=== PATIENT | female | born 2000 | race Caucasian/White ===

== ENCOUNTER 2021-10-23 09:00 | Outpatient (CLI) | payer BC ==
[2021-10-23 10:24] LABS: Hemoglobin 12.2 g/dL (12.0-15.5); Mean Corpuscular HGB CONC 31.4 g/dL (32.0-36.0); Mean Corpuscular Hemoglobin 24.5 pg (27.0-33.0); Mean Corpuscular Volume 77.9 fl (81.6-98.3); Mean Platelet Volume 9.5 fl (7.4-10.4); Platelet Count 337 10x3/uL (150-450); RBC Distribution Width 16.1 % (11.5-14.5); Red Blood Cell (RBC) Count 4.98 10x6/uL (3.90-5.03); White Blood Cell (WBC) Count 5.6 10x3/uL (3.5-10.5)
[2021-10-23 10:25] LABS: BHCG - Serum Negative (NEGATIVE); Pregs Control Background? CLEAR/WHITE (CLR/WHITE); Pregs Control Bar Appear? YES (CONTROL BAR)
[2021-10-23 10:30] LABS: Anion Gap 13 mmol/L (10-20); BUN (Urea Nitrogen) 18 mg/dL (7.0-18.7); Calc. Creatinine Clearance 0 mL/min (70-130); Calcium 9.2 mg/dL (7.8-10.44); Carbon Dioxide 24 mmol/L (22-29); Chloride 108 mmol/L (98-107); Glucose 101 mg/dL (70-105); Potassium 4.3 mmol/L (3.5-5.1); Sodium 141 mmol/L (136-145)
[2021-10-23 18:51] LABS: SARS-CoV-2 PCR by NAA Not Detected (NotDetected)
== END 2021-10-23 09:01 | disposition home or self-care (01) ==
LOC: CSHLAB 09:00
PROVIDERS: ATTEND Orthopaedic Surgery
DX: Z01.812 Encounter for preprocedural laboratory examination (principal); Z20.822 Contact with and (suspected) exposure to COVID-19; S62.324A Displaced fracture of shaft of fourth metacarpal bone, right hand, initial encounter for closed fracture
CPT/HCPCS: 80048; 84703; 85027; U0003; U0005

== ENCOUNTER 2021-10-24 06:58 | Day surgery (SDC) | payer BC ==
[2021-10-22 14:53] VITALS: BMI 34.9
[2021-10-24] MEDS ORDERED: Lidocaine 1% MPF 2 ML VIAL ONE (07:33)
[2021-10-24] MEDS ORDERED: Bupivacaine HCl 0.5%/Epinephrine 1:200,000/PF 30 ml Vial ONE (08:17)
[2021-10-24] MEDS ORDERED: Neomycin-Polymyxin 1 ML AMP ONE (08:18)
[2021-10-24] MEDS ORDERED: Midazolam HCl 2 mg/2 ml Vial ONE (09:03)
[2021-10-24] MEDS ORDERED: Ondansetron PF 4 MG/2 ML Vial ONE (09:10)
[2021-10-24] MEDS ORDERED: Lidocaine 1% PF 5 ML VIAL ONE (09:10)
[2021-10-24] MEDS ORDERED: PROPOFOL 20 ML ONE (09:10)
[2021-10-24] MEDS ORDERED: Fentanyl 100 MCG/2 ML VIAL ONE ×3 (09:10→10:32)
[2021-10-24] MEDS ORDERED: traMADol HCl 50 MG TAB ONE (10:54)
== END 2021-10-24 11:20 | disposition home or self-care (01) ==
LOC: CSHSDC 06:58
PROVIDERS: ATTEND Orthopaedic Surgery
PROC: 0PSP34Z Reposition Right Metacarpal with Internal Fixation Device, Percutaneous Approach (ICD-10-PCS; principal; 2021-10-24)
DX: S62.324A Displaced fracture of shaft of fourth metacarpal bone, right hand, initial encounter for closed fracture (principal); F32.9 Major depressive disorder, single episode, unspecified; X58.XXXA Exposure to other specified factors, initial encounter
CPT/HCPCS: 76000; C1713; J0690; J2250; J2405; J2704; J3010